=== PATIENT | male | born 1955 | race Caucasian/White ===

== ENCOUNTER 2025-01-07 13:56 | Emergency (ER) | payer OTHER, SELFPAY ==
--- NOTE | ~2025-01-07 | XR_ITS ---
EXAMINATION: XR WRIST, LEFT CLINICAL INFORMATION: fall COMPARISON: None available. TECHNIQUE: PA, lateral, and oblique views of the left wrist. FINDINGS: There is a depression fragment along the radial articular surface best visualized scaphoid view. Question new versus old fracture. Mild dorsal wrist soft tissue swelling seen. Rest of the visualized carpal bones, ulna and the proximal and mid metacarpals are normal. XR/XR wrist LT min 3V IMPRESSION: Depressed fracture articular surface distal radius old versus new. Mild dorsal wrist soft tissue swelling. Electronically signed by: Raymond Aguayo MD 01/07/2025 02:59 PM EDT
--- NOTE | ~2025-01-07 | XR_ITS ---
EXAMINATION: XR HAND, LEFT CLINICAL INFORMATION: left index laceration. fracuture COMPARISON: None available. TECHNIQUE: PA, lateral, and oblique views of the left hand. FINDINGS: Soft tissue contusion and laceration mid phalanx third digit. No visible fracture or dislocation seen. No radiopaque foreign body. XR/XR hand LT 2V IMPRESSION: Soft tissue laceration along the volar aspect of mid phalanx third digit. No radiopaque foreign body seen. No bony abnormality. Electronically signed by: Raymond Aguayo MD 01/07/2025 02:55 PM EDT
[2025-01-07 14:14] VITALS: BP 138/80; PULSE 78; RESP 18; TEMP 36.6; O2SAT 95; BMI 24.9
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
[2025-01-07] MEDS: Lidocaine HCl 1 % MPF 5 ML VIAL INFILTRATI (16:04)
[2025-01-07] MEDS: Diphth,Pertus(ACell),Tet Adult 0.5 ML SYRINGE IM (16:04)
[2025-01-07] MEDS: Bacitracin Oint 0.9 GM PACKET 1 APPL TOPICAL (17:39)
[2025-01-07 17:41] VITALS: BP 138/80; PULSE 78; RESP 18; TEMP 36.6; O2SAT 95
== END 2025-01-07 17:42 | disposition home or self-care (01) ==
PROVIDERS: Emergency Provider Emergency Medicine Emergency Medical Services
DX: S63.502A Unspecified sprain of left wrist, initial encounter (principal); S61.215A Laceration without foreign body of left ring finger without damage to nail, initial encounter; V29.31XA Electric (assisted) bicycle (driver) (passenger) injured in unspecified nontraffic accident, initial encounter; Y93.9 Activity, unspecified; Y92.9 Unspecified place or not applicable; Y99.9 Unspecified external cause status; Z23 Encounter for immunization
CPT/HCPCS: 12002; 73110; 73120; 90715; 99282; 99284; J2003

== ENCOUNTER → 2025-01-07 14:22 | Outpatient (BNV) | payer MEDICARE, SELFPAY | PROVIDERS: Visit Provider Radiology Diagnostic Radiology | DX: S52.502A Unspecified fracture of the lower end of left radius, initial encounter for closed fracture (principal); S61.213A Laceration without foreign body of left middle finger without damage to nail, initial encounter; W19.XXXA Unspecified fall, initial encounter | CPT/HCPCS: 73110; 73120 ==